=== PATIENT | female | born 1960 | race Caucasian/White ===

== ENCOUNTER 2023-02-25 08:08 | Outpatient (CLI) | payer BC, SELFPAY ==
--- NOTE | 2023-02-25 08:20 | ECG_ITS ---
Measurements Intervals [place] Rate: 72 P: 0 NE: 149 QRS: -11 QRSD: 80 T: 38 QT: 379 QTc: 415 Interpretive Statements SINUS RHYTHM NORMAL ECG NO PREVIOUS ECG AVAILABLE FOR COMPARISON Electronically Signed On 02-25-2023 8:37:47 CDT by Papi Scott D.O.
[2023-02-25 08:39] LABS: Basophils Absolute Auto 0.1 K/mm3 (0.0-0.1); Basophils Percent Auto 1.1 % (0.2-1.2); Eosinophils Absolute Auto 0.2 K/mm3 (0-0.3); Eosinophils Percent Auto 3.5 % (0-4.4); Hematocrit 39.5 % (37.0-47.0); Hemoglobin 13.6 g/dL (12.0-15.0); Immature Granulocyte Absolute 0.01 K/mm3 (0.00-0.031); Immature Granulocyte Percent A 0.2 % (0-0.5); Lymphocytes Absolute Auto 2.29 K/mm3 (0.9-3.2); Lymphocytes Percent Auto 42.6 % (18.3-44.2); Mean Corpuscular HGB Conc 34.4 g/dl (32-36); Mean Corpuscular Hemoglobin 28.3 pg (26-34); Mean Corpuscular Volume 82.3 fl (80-100); Mean Platelet Volume 11.6 fl (7.4-10.4); Monocytes Absolute Auto 0.5 K/mm3 (0.1-0.6); Monocytes Percent Auto 9.7 % (2.6-8.5); Neutrophils Absolute Auto 2.3 K/mm3 (1.3-6.7); Neutrophils Percent Auto 42.9 % (45.5-73.1); Platelet Count Result 232 k/mm3 (150-375); Red Cell Distribution Width 13.7 % (11.5-14.5); White Blood Count 5.4 K/mm3 (4.5-10.0)
== END 2023-02-25 08:09 | disposition home or self-care (01) ==
PROVIDERS: PCP Family Medicine; Visit Provider Obstetrics & Gynecology
DX: Z01.812 Encounter for preprocedural laboratory examination (principal); Z01.810 Encounter for preprocedural cardiovascular examination; N81.4 Uterovaginal prolapse, unspecified; Z87.891 Personal history of nicotine dependence; I49.9 Cardiac arrhythmia, unspecified
CPT/HCPCS: 36415; 85025; 86850; 86900; 86901; 93005

== ENCOUNTER 2023-02-27 00:13 | Day surgery (SDC) | payer BC, SELFPAY ==
[2023-02-23 09:50] VITALS: BMI 28.8
--- NOTE | 2023-02-23 09:59 | PC.NURSE ---
Report to the Outpatient Waiting Room, entrance under the green pavilion located off [facility], at time 9:30 on date 02/27/23. Planned Procedure Time: 11:30. Time changes happen often and if your time is changed the preop area will call you the afternoon before. - You and your visitor will be asked to self-screen and do not enter if you have any COVID symptoms. - A mask is optional within the hospital at this time. Patients may have clear liquids (water, carbonated beverages, clear teas, apple juice) until 3 hours prior to surgery (8:30) with a maximum of 20 ounces. - No food from midnight until time of surgery Take the following medications with a SIP of water the morning of surgery: VENLAFAXINE, INHALER IF NEEDED DO NOT STOP ANY OF YOUR OTHER PRESCRIPTION MEDICATIONS PRIOR TO SURGERY ?EXCEPT THE FOLLOWING Medications to discontinue per physician: VITAMINS/SUPPLEMENTS Date to take last dose: 02/23/23 Please no make-up, nail cymro, hairspray, perfume, deodorant, or body powder the day of surgery. No jewelry (including any body piercings) or valuables the day of surgery, leave them at home. Please take a shower or bath the night before, or the morning of, surgery with an antibacterial soap. Wear comfortable, loose fitting clothing. - Jewelry must be removed prior to entering the operating room. Rings and piercings that are not removed may be cut off. - The hospital will not accept responsibility for valuables. - Please leave all valuables, including medications, at home the day of surgery. If you are going home after surgery, a licensed steam train driver must drive you home. - NO public transportation without another adult if you receive anesthesia. - We recommend that an adult stay with you for 24 hours following discharge. - We also recommend that you do not drive, make important decision, drink alcoholic beverages, or take any drugs that were not prescribed by your health care provider for at least 24 hours after your discharge time. Follow any additional instructions given to you from your surgeon. If you or anyone in your household have experienced Covid symptoms in the past week, please notify your surgeon or the nurse liaison at the phone number below for possible testing. Telephone instructions given to PT - MARY LOU BRANDON and asked if any additional questions and then verbalized understanding. Patient advised to call surgeon office or pre surgery nurse liaison [phone] if any additional questions.
--- NOTE | 2023-02-23 11:47 | P.HP_ITS ---
H&P: HPI History of Present Illness Date/Time: 02/23/23 11:47 Chief Complaint: Pelvic pain and prolapse Narrative: A 62-year-old female admitted for robotic total vaginal hysterectomy bilateral salpingo oophorectomy secondary to uterine prolapse. She has severe pelvic pain and discomfort uterus is severely retroverted she has pain discomfort dyspareunia para risks and benefits reviewed including not exclusive of , aspiration pneumonia, bleeding, transfusion, perforation injury to bowel, bladder, ureters, or other internal organs with need for open laparotomy. She received the ACOG handout entitled hysterectomy as well as the de Edith handout. She had all questions answered and asked to proceed PMFSH Social History Social History Smoking packs per day: 1 Smoking cigarettes per day: 20.0 Years smoked: 25 Smoking pack-years: 25.00 Smoking status: Former smoker Tobacco type: cigarettes Smoking end date: 08/24/92 Alcohol intake: current Drinks per week: 2 Substance use: never Substance use type: does not use Living arrangements: with friend(s) Spiritual care concerns: No Meds Home Medications and Allergies Home Medications Medication Instructions Recorded Confirmed Type albuterol sulfate 90 mcg/actuation 1 puff inhalation QID PRN 02/23/23 02/23/23 History aerosol inhaler (Ventolin HFA) Shortness Of Breath Or Wheezing cholecalciferol (vitamin D3) 125 125 mcg PO DAILY 02/23/23 02/23/23 History mcg (5,000 unit) tablet (Vitamin D3) coenzyme Q10 100 mg capsule 100 mg PO DAILY 02/23/23 02/23/23 History (CoQ-10) ginkgo biloba 40 mg tablet 40 mg PO DAILY 02/23/23 02/23/23 History magnesium citrate 125 mg capsule 125 mg PO DAILY 02/23/23 02/23/23 History oregano oil 1,500 mg capsule 1,500 mg PO DAILY 02/23/23 02/23/23 History turmeric 400 mg capsule 400 mg PO DAILY 02/23/23 02/23/23 History venlafaxine 37.5 mg 37.5 mg PO DAILY 02/23/23 02/23/23 History capsule,extended release 24 hr Allergies Allergy/AdvReac Type Severity Reaction Status Date / Time trazodone Allergy Anaphylactic Verified 02/23/23 09:50 Shock Exam Const: General: cooperative, healthy appearing, comfortable and average body habitus Orientation/consciousness: oriented to person, oriented to place and oriented to time Resp: Effort & Inspection: normal respiratory effort Cardio: Rate: regular rate Rhythm: regular rhythm Heart sounds: S1 nor mal heart sound present and S2 normal heart sound present GI: Inspection: normal to inspection : External Female Exam: normal external appearance Speculum Exam - Vagina: normal appearance of the vagina Speculum Exam - Cervix: normal estefany earance of the cervix (Second-degree prolapse) Bimanual exam- vagina & uterus: enlarged Bimanual Exam- Adnexa, other: normal adnexae Assessment and Plan Assessment and plan (1) Uterine prolapse: Code(s): N81.4 - Uterovaginal prolapse, unspecified Status: Acute (2) Pelvic pain: Code(s): R10.2 - Pelvic and perineal pain Status: Acute Plan Robotic total vaginal hysterectomy and bilateral salpingo-oophorectomy
--- NOTE | 2023-02-26 12:59 | WPDANESEPPF ---
Anes - Initial Pre Proc Eval Procedure: Operation Date: 02/27/23 11:30 Proposed Procedures p Robotic Assisted Total Vaginal Hysterectomy, Bilateral Salpingo Oophorectomy - Howard Esteves MD Date/Time: 02/26/23 12:59 Surgeon: Howard Esteves MD Pre Op Diagnosis: uterine prolapse, pelvic pain Patient Data Age: 62 Gender: F Height: 1.63 m Weight: 76.2 kg Allergies Allergy/AdvReac Type Severity Reaction Status Date / Time trazodone Allergy Anaphylactic Verified 02/27/23 09:55 Shock Home Medications Medication Instructions Recorded Confirmed Type albuterol sulfate 90 mcg/actuation 1 puff inhalation QID PRN 02/23/23 02/23/23 History aerosol inhaler (Ventolin HFA) Shortness Of Breath Or Wheezing cholecalciferol (vitamin D3) 125 125 mcg PO DAILY 02/23/23 02/27/23 History mcg (5,000 unit) tablet (Vitamin D3) coenzyme Q10 100 mg capsule 100 mg PO DAILY 02/23/23 02/27/23 History (CoQ-10) ginkgo biloba 40 mg tablet 40 mg PO DAILY 02/23/23 02/27/23 History magnesium citrate 125 mg capsule 125 mg PO DAILY 02/23/23 02/27/23 History oregano oil 1,500 mg capsule 1,500 mg PO DAILY 02/23/23 02/27/23 History turmeric 400 mg capsule 400 mg PO DAILY 02/23/23 02/27/23 History venlafaxine 37.5 mg 37.5 mg PO DAILY 02/23/23 02/23/23 History capsule,extended release 24 hr hydrocodone 5 mg-acetaminophen 325 1 tablet PO Q4H PRN pain #30 tabs 02/27/23 Rx mg tablet ECG: Date of Service: 02/25/23 Procedure(s): CA 12 lead EKG Accession Number(s): [id number] cc: ~ ? Measurements Intervals? [place]? Rate: ? 72 ? P:? 0 OR: ? 149? QRS:? -11 QRSD: ? 80 ? T:? 38 QT: ? 379? QTc:? 415? Interpretive Statements SINUS RHYTHM NORMAL ECG NO PREVIOUS ECG AVAILABLE FOR COMPARISON Electronically Signed On 02-25-2023 8:37:47 CDT by Papi Scott D.O. Patient hx anesthesia problems: none Family hx anesthesia problems: none Results Review: All pre-operative results and documents have been reviewed as part of the pre-operative evaluation. [facility] Past Medical History Medical History (Updated 02/26/23 @ 13:00 by Korey Stapleton MD) Asthma Overweight (BMI 25.0-29.9) Uterine prolapse Social History Social History Smoking packs per day: 1 Smoking cigarettes per day: 20.0 Years smoked: 25 Smoking pack-years: 25.00 Smoking status: Former smoker Tobacco type: cigarettes Smoking end date: 08/24/92 Alcohol intake: current Drinks per week: 2 Substance use: never Substance use type: does not use Living arrangements: with friend(s) Spiritual care concerns: No Anes - Eval Final PreProcedure Day of Procedure 02/26/23 12:59 Patient weight: overweight Heart: regular rate and rhythm Lungs: clear to auscultation and normal air movement Airway: Mallampati scale class II Neurological: alert and oriented Last oral intake: >/= 8 hours ASA classification: II Emergent: no Anesthetic plan: proceed Anesthesia type and monitoring: general ETT Results Review: All pre-operative results and documents have been reviewed as part of the pre-operative evaluation. Informed Consent: The patient's anesthetic plan and its attendant risks and benefits were discussed with the patient/family/POA. Questions were solicited and answers provided to the satisfaction of the patient/family/POA.
[2023-02-27] VITALS (11 sets, daily range): BP systolic 106–143; BP diastolic 48–81; PULSE 61–90; RESP 11–19; TEMP 36.1–37.3; O2SAT 93–100
--- NOTE | 2023-02-27 06:29 | WPDHPUPDATE1 ---
History and Physical Update Update Date/Time: 02/27/23 06:29 History and Physical has been reviewed, including an updated exam of the patient. There are NO changes in the patient's condition. Risks, benefits, and alternatives have been discussed and questions answered. Patient agrees to proceed with procedure.
[2023-02-27] MEDS: LACTATED RINGERS 1,000 ML 30 ML IV CONT ×2 (10:16→12:14)
[2023-02-27] MEDS: ACETAMINOPHEN 500 MG TABLET 1000 MG PO (10:28)
[2023-02-27] MEDS: KETOROLAC 15 MG/ML VIAL (*BKC) IV PUSH (10:28)
[2023-02-27] MEDS: ceFAZolin 2 GM/D5W 50 ML 2 GM/50 ML BAG IVPB (11:00)
--- NOTE | 2023-02-27 12:01 | W.PM.PROC2 ---
Procedure Note - Detailed Date of Procedure 02/27/23 Pre-op Diagnosis uterine prolapse, pelvic pain Post-op Diagnosis Same Procedure Performed Robotic total vaginal hysterectomy and bilateral salpingo-oophorectomy Surgeon Howard Esteves MD Anesthesia General Indications this is the 62-year-old female with uterine prolapse and pelvic pain Findings enlarged uterus. Normal-appearing ovaries and tubes. Description of Procedure Patient was prepped draped in the normal sterile fashion placed in dorsal lithotomy position. Under excellent general trach anesthesia weighted speculum placed in posterior fornix of HERMANN. Anterior lip of cervix grasped single-tooth tenaculum. Uterus sounded to 10cm. Serial dilatation fragmented dilators performed followed passes the 8. SID and the 3. Cold cup. Next the 16 American catheter placed in bladder draining clear urine. The weighted speculum and single-tooth removed and the gloves were changed. A supraumbilical incision made the Veress needle passed in the abdomen. Abdomen filled with CO2 gas to 15mm Hg. The 8mm trocar advanced in the abdomen. Downside visualized no injury seen. Patient placed in 19? of Trendelenburg and right left lateral quadrant incision made. 8Mm trocars advanced under direct visualization no injury seen right upper quadrant incision made the 8mm trocar advanced under direct visualization assuring injury there. The robot was docked. Attention was turned to the console. The left round ligament was grasped, burned, cut. Anteriorly a bladder flap was formed by sharply dissecting peritoneum reflecting the bladder caudally away from the cervix uterus to the opposite round ligament which was clamped, burned, cut. Next the left infundibulopelvic structure was skeletonized remove the left ovary and tube. This was serially clamped, burned, cut and brought to the level of previously cut round ligament. In like fashion the right ovary tube removed by grasping burning and cutting the infundibulopelvic structure on the right. This was clamped, burned, cut brought to the level of previously cut round ligament. Next the cardinal and broad ligaments on the left were serially skeletonized clamping burning cutting hugging the cervix and uterus until the uterine vessels could be seen on the left. These were large and tortuous individually clamped, burned, cut. Next the uterine vessels on the right were clamped, burned, cut after clamping burning and cutting the cardinal and broad ligaments on the right. Excellent blanching the uterus was seen. A colpotomy incision was made the cervix uterus ovaries and tubes removed through the vagina. The vagina was then closed with continuous running 0V lock from lateral edge to lateral edge back to the midline. Irrigation undertaken to clear blood loss estimated 25cc. The robot was undocked. The gas removed from the abdomen. The trocars removed and the incisions closed with 4 Monocryl glue. The patient went to recovery in satisfactory condition. All sponge, needle, instrument counts were correct. There were no immediate complications noted Estimated Blood Loss 25 Drains No Packing No Pathology Yes Complications No immediate complications Condition Stable Disposition PACU
[2023-02-27] MEDS: fentaNYL CITRATE INJ (*CRX) 100 MCG/2 ML VIAL 25 MCG IV PUSH ×4 (12:29→12:47)
[2023-02-27] MEDS: DEXTROSE 5%/LACTATED RINGERS 1,000 ML 125 ML IV CONT (13:41)
[2023-02-27] MEDS: KETOROLAC 30 MG/ML VIAL (*BKC) IV PUSH (13:41)
--- NOTE | 2023-02-27 14:04 | P.DS_ITS ---
DS: Admitting Diagnosis Discharge Date 02/28/2023 Admitting Diagnosis uterine prolapse/pelvic pain DS: Discharge Diagnosis Discharge Diagnosis (1) Uterine prolapse: Code(s): N81.4 - Uterovaginal prolapse, unspecified Status: Acute DS: Summary Hospital Course Reason for hospitalization: patient was admitted on 02/27 for robotic total vaginal hysterectomy bilateral salpingo-oophorectomy Hospital Course: patient underwent an unremarkable robotic total vaginectomy bilateral salpingo- oophorectomy on 02/27 23. Her hospital course was unremarkable. She remained afebrile. She was up, voiding without difficulty, ambulating, eating regular diet, and generally without complaints. Time Spent with Patient Time attestation: Total time spent providing and/or coordinating discharge services: Exam Const: General: cooperative, healthy appearing and comfortable Nutritional Appearance: average body habitus Orientation/consciousness: oriented to person, oriented to place and oriented to time HENMT: Head: normal to inspection Resp: Effort & Inspection: normal respiratory effort Cardio: Rate: regular rate Rhythm: regular rhythm Heart sounds: S1 normal heart sound present and S2 normal heart sound present GI: Inspection: normal to inspection and incision ( Wounds are clean dry and intact) DS: Data Data Completed and Pending Pending studies at discharge: Pending at discharge 02/27/23 11:59 Surgical [PTH] Routine Discharge Plan Discharge Patient Disposition: Home, Self-Care Stand Alone Forms: General Discharge Instructions Follow-up/Referrals: Howard Tena MD [Physician] - Discharge Medications: New hydrocodone-acetaminophen 5-325 mg tablet 1 tablet PO Q4H PRN (Reason: pain) Qty: 30 0RF No Action venlafaxine 37.5 mg capsule,extended release 24hr 37.5 mg PO DAILY ginkgo biloba 40 mg Tablet 40 mg PO DAILY Rx Instructions: give with meal/snack albuterol sulfate [Ventolin HFA] 90 mcg/actuation Hfa Aerosol Inhaler 1 puff INHALATION QID PRN (Reason: Shortness Of Breath Or Wheezing) coenzyme Q10 [CoQ-10] 100 mg Capsule 100 mg PO DAILY oregano oil 1,500 mg Capsule 1,500 mg PO DAILY cholecalciferol (vitamin D3) [Vitamin D3] 125 mcg (5,000 unit) Tablet 125 mcg PO DAILY magnesium citrate 125 mg Capsule 125 mg PO DAILY turmeric 400 mg Capsule 400 mg PO DAILY
[2023-02-27] MEDS: HYDROcodone/acetaminophen (*CRX) 5-325 MG TABLET 1 TAB PO (14:10)
[2023-02-27] MEDS: SIMETHICONE 80 MG TAB.CHEW PO ×2 (16:10→19:49)
[2023-02-27] MEDS: HYDROcodone/acetaminophen (*CRX) 10-325 MG TABLET 1 TAB PO ×2 (16:59→20:59)
[2023-02-27] MEDS: IBUPROFEN 600 MG TABLET PO (21:01)
[2023-02-27] MEDS: DOCUSATE SODIUM 100 MG CAPSULE PO (21:01)
[2023-02-28 03:16] VITALS: BP 119/64; PULSE 88; RESP 16; TEMP 36.6; O2SAT 88
[2023-02-28] MEDS: SIMETHICONE 80 MG TAB.CHEW PO ×2 (03:26→10:14)
[2023-02-28] MEDS: HYDROcodone/acetaminophen (*CRX) 10-325 MG TABLET 1 TAB PO ×2 (03:26→10:15)
[2023-02-28] MEDS: IBUPROFEN 600 MG TABLET PO ×2 (03:27→10:14)
[2023-02-28 04:30] LABS: Basophils Percent Auto 0.2 % (0.2-1.2); Hematocrit 36.8 % (37.0-47.0); Hemoglobin 12.5 g/dL (12.0-15.0); Immature Granulocyte Absolute 0.03 K/mm3 (0.00-0.031); Immature Granulocyte Percent A 0.3 % (0-0.5); Lymphocytes Absolute Auto 1.33 K/mm3 (0.9-3.2); Mean Corpuscular Hemoglobin 28.3 pg (26-34); Mean Corpuscular Volume 83.4 fl (80-100); Mean Platelet Volume 12.3 fl (7.4-10.4); Monocytes Absolute Auto 0.9 K/mm3 (0.1-0.6); Monocytes Percent Auto 8.1 % (2.6-8.5); Neutrophils Absolute Auto 8.8 K/mm3 (1.3-6.7); Neutrophils Percent Auto 79.4 % (45.5-73.1); Platelet Count Result 224 k/mm3 (150-375); Red Blood Count 4.41 M/mm3 (4.2-5.4); Red Cell Distribution Width 13.6 % (11.5-14.5); White Blood Count 11.1 K/mm3 (4.5-10.0)
--- NOTE | 2023-02-28 06:57 | P.PNAN_ITS ---
Anes - Prog Note Post-Op Date/Time: 02/28/23 06:57 Cardiovascular status: normal Respiratory status: normal Airway patency: baseline Mental status: baseline Post-Op hydration status: normal Vital Signs: Last Vital Signs Temp 36.6 C 02/28/23 03:16 Pulse 88 02/28/23 03:16 Resp 16 02/28/23 03:16 BP 119/64 02/28/23 03:16 Pulse Ox 88 L 02/28/23 03:16 O2 Del Method Room Air 02/27/23 16:17 O2 Flow Rate 2 02/27/23 13:25 Pain Score (VAS): 2 I/O: Intake & Output 02/27/23 02/27/23 02/28/23 15:59 23:59 07:59 Intake Total 550 240 Output Total 120 1125 200 Balance 430 -425 -200 Laboratory Tests 02/28/23 03:25 02/28/23 03:25 WBC 11.1 H RBC 4.41 Hgb 12.5 Hct 36.8 L MCV 83.4 MCH 28.3 MCHC 34.0 RDW 13.6 Plt Count 224 MPV 12.3 H Immature Gran % (Auto) 0.3 Neut % (Auto) 79.4 H Lymph % (Auto) 12.0 L [place] % (Auto) 8.1 Eos % (Auto) 0.0 Baso % (Auto) 0.2 Lymph # (Auto) 1.33 [place] # (Auto) 0.9 H Eos # (Auto) 0.0 Baso # (Auto) 0.0 Abs Immat Gran (auto) 0.03 Absolute Neuts (auto) 8.8 H Absolute Nucleated RBC 0.0 Nucleated RBC % 0.0 Post-procedural complaints: none Patient Feedback: Patient satisfied with anesthetic care.
--- NOTE | 2023-02-28 07:15 | PM.GYNPNOP ---
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 Postoperative Procedures: Procedures Operation Date: 02/27/23 11:30 Actual Procedure Side Surgeon p Robotic Assisted Total Vaginal Hysterectomy, Bilateral Salpingo Oophorectomy Bilateral Howard Esteves MD Postoperative day: 1 Postoperative status: doing well Postoperative plan: routine post-op care, see orders and discharge Time Spent With Patient Time: Total time spent is greater than 50% in coordination of care (as documented) at patient's floor/unit and/or counseling patient: Time with patient: less than 15 minutes [employer]IEF [employer]- PN:Subj Post-Op Subjective Date/time seen: 02/28/23 07:15 Subjective: patient has no complaints, pain is well controlled and patient is tolerating oral intake Exam Const: General: cooperative, healthy appearing and comfortable Nutritional Appearance: average body habitus Orientation/consciousness: oriented to person, oriented to place and oriented to time HENMT: Head: normal to inspection Resp: Effort & Inspection: normal respiratory effort Cardio: Rate: regular rate Rhythm: regular rhythm Heart sounds: S1 normal heart sound present and S2 normal heart sound present GI: Inspection: normal to inspection and incision ( wounds are clean dry and intact) Auscultation: normal bowel sounds [employer]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: Obj Data Vital Signs Vital Signs: Vital Signs - 24 hr 02/27/23 09:44 02/27/23 12:14 02/27/23 12:20 Temperature 96.9 F L 97.7 F Pulse Rate 77 61 69 Respiratory Rate 18 11 L 12 Blood Pressure 126/70 132/65 143/81 H Pulse Oximetry 99 100 93 Oxygen Delivery Room Air Simple Face Mask Room Air Oxygen Flow Rate 10 02/27/23 12:30 02/27/23 12:45 02/27/23 13:00 Temperature Pulse Rate 65 69 75 Respiratory Rate 19 17 12 Blood Pressure 130/61 132/59 L 125/68 Pulse Oximetry 93 95 100 Oxygen Delivery Room Air Nasal Cannula Nasal Cannula Oxygen Flow Rate 2 2 02/27/23 13:15 02/27/23 13:25 02/27/23 13:25 Temperature 98.2 F Pulse Rate 72 64 64 Respiratory Rate 12 12 12 Blood Pressure 138/55 L 127/48 L Pulse Oximetry 100 99 99 Oxygen Delivery Nasal Cannula Nasal Cannula Oxygen Flow Rate 2 2 02/27/23 16:17 02/27/23 16:17 02/27/23 19:14 Temperature 97.8 F 98.6 F Pulse Rate 76 76 90 Respiratory Rate 18 18 12 Blood Pressure 128/66 111/59 L Pulse Oximetry 99 99 96 Oxygen Delivery Room Air Oxygen Flow Rate 02/27/23 23:13 02/28/23 03:16 Temperature 99.2 F 97.8 F Pulse Rate 88 88 Respiratory Rate 14 16 Blood Pressure 106/51 L 119/64 Pulse Oximetry 95 88 L Oxygen Delivery Oxygen Flow Rate Intake/Output Intake/Output: Intake & Output 02/25/23 02/26/23 02/27/23 02/28/23 23:59 23:59 23:59 23:59 Intake Total 790 Output Total 1245 200 Balance -455 -200 Meds/Results Medications: Active Medications Generic Name Dose Route Start Last Admin Trade Name Freq PRN Reason Stop Dose Admin Hydrocodone Bitart/Acetaminophen 1 tab 02/27/23 13:17 02/28/23 03:26 Hydrocodone/Acetaminophen (*Crx) 10-325 Mg Tablet PO 1 tab Q3H PRN Administration Pain Rated 6 or Greater Hydrocodone Bitart/Acetaminophen 1 tab 02/27/23 13:17 02/27/23 14:10 Hydrocodone/Acetaminophen (*Crx) 5-325 Mg Tablet PO 1 tab Q3H PRN Administration Pain Rated 5 or Less Docusate Sodium 100 mg 02/27/23 17:00 02/27/23 21:01 Docusate Sodium 100 Mg Capsule PO 100 mg BID IVELISSE Administration Enoxaparin Sodium 40 mg 02/28/23 09:00 Enoxaparin 40 Mg/0.4 Ml Syringe SUB-Q DAILY IVELISSE Ibuprofen 600 mg 02/27/23 13:17 02/28/23 03:27 Ibuprofen 600 Mg Tablet PO 600 mg Q6H PRN Administration Cramping Ketorolac Tromethamine 30 mg 02/27/23 13:17 02/27/23 13:41 Ketorolac 30 Mg/Ml Vial (*Bkc) IV PUSH 03/04/23 13:16 30 mg Q6H PRN Administration Pain Rated 4-6 Naloxone HCl 0.1 mg 02/27/23 13:17 Naloxone Hcl 0.4 Mg/Ml Vial IV PUSH Q2M PRN Respiratory rate less than 10 Ondansetron HCl 4 mg
[2023-02-28 08:00] VITALS: PULSE 74; RESP 16; O2SAT 97
[2023-02-28] MEDS: ENOXAPARIN 40 MG/0.4 ML SYRINGE SUB-Q (10:16)
== END 2023-02-28 11:27 | disposition home or self-care (01) ==
LOC: ANHSURGERY 09:34 → ANHOB2 13:19
PROVIDERS: PCP Family Medicine; Visit Provider Obstetrics & Gynecology
PROC: (CPT 58571; principal; 2023-02-27 11:30)
DX: N81.4 Uterovaginal prolapse, unspecified (principal); R10.2 Pelvic and perineal pain; N80.03 Adenomyosis of the uterus; N83.292 Other ovarian cyst, left side; N83.291 Other ovarian cyst, right side; N83.8 Other noninflammatory disorders of ovary, fallopian tube and broad ligament; Z79.51 Long term (current) use of inhaled steroids; J45.909 Unspecified asthma, uncomplicated; Z87.891 Personal history of nicotine dependence
CPT/HCPCS: 58571; S2900; 36415; 85025; 88307; 88342; 99199; A9270; J0690; J1100; J1650; J1885; J2250; J2405; J2704; J3010; J7030; J7120; J7121

== ENCOUNTER 2023-11-18 15:39 | Outpatient (CLI) | payer BC, SELFPAY ==
--- NOTE | ~2023-11-18 | XR_ITS ---
EXAMINATION: [id number] DATE: 11/18/2023 16:11 INDICATION: Cervical radiculopathy. TECHNIQUE: 2 views of cervical spine were obtained. COMPARISON: None. FINDINGS: There is 6 degrees levocurvature of cervicothoracic spine. Vertebral body heights and inter vertebral disc heights are normal. There is multilevel mild facet joint osteoarthritis. No central ca nal stenosis or prevertebral soft tissue swelling. IMPRESSION: 1. Mild cervical facet joint osteoarthritis. Reviewed, dictated and finalized at location A.
--- NOTE | ~2023-11-18 | XR_ITS ---
XR shoulder RT min 2V 11/18/2023 16:11 Indication: Chronic right shoulder pain Procedure: 4 views right shoulder Comparison: No prior studies for comparison. Findings: No fracture, subluxation or dislocation. No significant soft tissue abnormality. No foreign bodies. There is anatomic alignment. Impression: 1: No significant bone or joint abnormality. Reviewed, dictated and finalized at location L. Impression: 1: No significant bone or joint abnormality.
== END 2023-11-18 15:40 ==
PROVIDERS: PCP Physician Assistant; Visit Provider Physician Assistant
DX: M47.812 Spondylosis without myelopathy or radiculopathy, cervical region (principal); M25.511 Pain in right shoulder; G89.29 Other chronic pain
CPT/HCPCS: 72040; 73030

== ENCOUNTER 2025-04-06 11:23 | Emergency (ER) | payer MEDICARE, SELFPAY ==
--- NOTE | 2025-04-06 11:25 | ED_ITS ---
HPI - General Adult General Chief complaint: Skin/Abscess/Foreign Body Stated complaint: Allergic Reaction Time Seen by Provider: 04/06/25 11:36 Source: patient, RN notes reviewed and old records reviewed Mode of arrival: ambulatory Limitations: no limitations History of Present Illness HPI narrative: 64-year-old female presents to the [facility] with concerns of having an allergic reaction. No respiratory distress, no lip or tongue swelling are noted. Patient states that she took 1 Benadryl yesterday, no other treatment. Patient states she started yesterday with a rash, I swelling. Patient denies any new creams or ointments lotions or detergents. Denies any new foods. Related Data Home Medications ?Medication ?Instructions ?Recorded ?Confirmed ?Last Taken ?Type albuterol sulfate 90 mcg/actuation 1 puff inhalation QID PRN 02/23/23 02/23/23 Unknown History aerosol inhaler (Ventolin HFA) Shortness Of Breath Or Wheezing venlafaxine 37.5 mg 37.5 mg PO DAILY 02/23/23 02/23/23 Unknown History capsule,extended release 24 hr Allergies Allergy/AdvReac Type Severity Reaction Status Date / Time trazodone Allergy Anaphylactic Verified 04/06/25 11:25 Shock Review of Systems Review of Systems: All systems reviewed & are unremarkable except as noted in HPI and below Constitutional: Constitutional: Reports no additional constitutional complaints ENT: Reports system reviewed and no additional complaints, except as documented Cardiovascular: Cardiovascular: Reports no additional cardiovascular complaints, Denies chest pain and Denies dyspnea Respiratory: Respiratory: Reports no additional respiratory complaints, Denies chest congestion, Denies cough and Denies dyspnea Musculoskeletal: Musculoskeletal: Reports no additional musculoskeletal complaints Integumentary/Breasts: Skin/Breast: Reports as per HPI [facility] Past Medical History Medical History Asthma Overweight (BMI 25.0-29.9) Uterine prolapse Social History Social History Smoking packs per day: 1 Smoking cigarettes per day: 20.0 Years smoked: 25 Smoking pack-years: 25.00 Smoking status: Former smoker Tobacco type: cigarettes Smoking end date: 08/24/92 Alcohol intake: current Drinks per week: 2 Substance use: never Substance use type: does not use Living arrangements: with friend(s) Spiritual care concerns: No Comments At the time of my signature, I reviewed and agree with the nursing past medical, surgical, social, and family history. There is no relevant family history pertinent to the patient complaint. Exam Const: General: cooperative, healthy appearing, comfortable, no acute distress, well developed, alert and well nourished Nutritional Appearance: well nourished Orientation/consciousness: patient oriented x3 Limitations: no limitations HENMT: Head: normal to inspection Ears: hearing grossly normal bilaterally, external ears normal, TM's normal bilaterally, EAC's normal, mastoids normal and no periauricular adenopathy Face and sinus: no abrasions and no erythema Mouth: Yes Normal oral and palatal mucosa present, Yes lip normal, Yes tongue normal and Yes moist mucous membranes Throat: posterior oropharynx normal, uvula midline and no uvular edema Eyes: General: appearance normal, both eyes and all related structures Alignment and Position: alignment normal Eyelids: eyelids normal Neck: Neck: normal visual inspection, full ROM, no lymphadenopathy and no meningeal signs Chest: Chest palpation & inspection: normal inspection of the chest Resp: Effort & Inspection: normal respiratory effort and able to speak in complete sentences Auscultation: clear to auscultation bilaterally, no crackles, no rales, no rhonchi and no wheezes Cardio: Rate: regular rate Skin: General skin exam: normal color and no rashes or lesions noted Rashes: rashes noted (Right-side of neck, flat, itchy, hive-like) Neuro: General: patient oriented x3, gait normal, moves all extremities and no meningeal signs Cognition (Neuro): normal cognition Speech: normal speech Gait exam (Neuro): Normal gait present Extrem: General: normal to inspection, full ROM, capillary refill normal and normal gait Psych: Appearance: grossly normal and well kempt Mental Status: mental status grossly normal Speech and movement: Normal speech and movement present and Clear speech present Affect: normal affect Attitude: cooperative Course Course Level of Care: Express Care Visit Vital Signs Vital signs: Vital Signs Temperature 97.3 F L 04/06/25 11:33 Pulse Rate 93 04/06/25 11:33 Respiratory Rate 16 04/06/25 11:33 Blood Pressure 132/67 04/06/25 11:33 Pulse Oximetry 98 04/06/25 11:33 Oxygen Delivery Room Air 04/06/25 11:33 Temperature 97.3 F L 04/06/25 11:33 Pulse Rate 93 04/06/25 11:33 Respiratory Rate 16 04/06/25 11:33 Blood Pressure 132/67 04/06/25 11:33 Pulse Oximetry 98 04/06/25 11:33 Oxygen Delivery Room Air 04/06/25 11:33 Reviewed Medical Decision Making MDM Narrative Medical decision making narrative: Patient sitting comfortably in exam room. Nontoxic, vitals stable. Patient in no acute distress Patient presents with 1 day history of a rash, swelling around the eyes without lip, tongue. Dose of prednisone given to patient No known factors to cause rash. Patient appropriate for outpatient treatment with close follow-up Discharge instructions reviewed with patient, as well as provided in writing per nursing staff. The instructions also include specific and strict return/GO TO THE ER as well as f/u information. All questions have been answered, and the patient deny any further questions with discharge and discharge plan. Some parts of this dictation were generated by voice recognition software and may contain typographical and/or grammatical inaccuracies. Differential Diagnosis Differential Diagnosis: Allergic reaction, hives Medical Records Medical records reviewed: Yes I reviewed the external patient's medical records. Vital Signs Vital Signs: Vital Signs Temperature 97.3 F L 04/06/25 11:33 Pulse Rate 93 04/06/25 11:33 Respiratory Rate 16 04/06/25 11:33 Blood Pressure 132/67 04/06/25 11:33 Pulse Oximetry 98 04/06/25 11:33 Oxygen Delivery Room Air 04/06/25 11:33 Temperature 97.3 F L 04/06/25 11:33 Pulse Rate 93 04/06/25 11:33 Respiratory Rate 16 04/06/25 11:33 Blood Pressure 132/67 04/06/25 11:33 Pulse Oximetry 98 04/06/25 11:33 Oxygen Delivery Room Air 04/06/25 11:33 Reviewed Lab Data Lab results reviewed: Yes I reviewed the patient's lab results. Labs: Reviewed Critical Care Time Critical Care Time Critical Care Time: No Discharge Plan Discharge Clinical Impression: Allergic reaction Qualifiers: Encounter type: initial encounter Qualified Code(s): T78.40XA - Allergy, unspecified, initial encounter Patient Disposition: Home Condition: Stable Instructions: Antibiotic Form, Acute Rash (ED), General Allergic Reaction (ED) Additional Instructions: The most important part of your care is follow up with Primary care provider. Take Benadryl 25 mg every 8 hours for itching Take Zyrtec 10 every day Take Pepcid 20mg daily for 7 days Take the steroids starting tomorrow, 1st dose was given today Avoid hot showers, Take cool showers. Hot showers will make rashes worse Apply cool compresses every 2-3 hours for 15 minutes Go to the ER for new or worsening symptoms such as shortness of breath. Patient Language: Swazi Prescriptions: New prednisone 20 mg tablet See Rx Instructions .Route .COMPLEX Qty: 13 0RF Rx Instructions: Take 40 mg daily for 4 days, 20 mg daily for 5 days No Action venlafaxine 37.5 mg capsule,extended release 24hr 37.5 mg PO DAILY albuterol sulfate [Ventolin HFA] 90 mcg/actuation Hfa Aerosol Inhaler 1 puff INHALATION QID PRN (Reason: Shortness Of Breath Or Wheezing) Follow-up/Referrals: Alexandra,MANUELA LynchC [Primary Care Provider] - 1 Week ([facility] follow- up) Stand Alone Forms: Work/School Release IP Time of Disposition: 11:49
[2025-04-06 11:33] VITALS: BP 132/67; PULSE 93; RESP 16; TEMP 36.3; O2SAT 98
== END 2025-04-06 11:55 | disposition home or self-care (01) ==
PROVIDERS: Emergency Provider Nurse Practitioner; PCP Physician Assistant
DX: T78.40XA Allergy, unspecified, initial encounter (principal); Z87.891 Personal history of nicotine dependence; J45.909 Unspecified asthma, uncomplicated
CPT/HCPCS: 99211; 99213; G0463; J7512